=== PATIENT | male | born 1990 | race Caucasian/White ===

== ENCOUNTER 2021-05-21 16:16 | Emergency (ER) | payer OTHER ==
[~2021-05-21] VITALS: Ht 180.3 cm; Wt 86.2 kg
[~2021-05-21 16:16] MED LIST: ALBU90OI INH; AMOX250; Amoxicillin500 MG PO; CONCERTA; CYCL10 PO; Cyclobenzaprine5 MG PO; DOXY100 PO; ESCI20 PO; GUAI120S1 PO; HYDACE10B PO; HYDACE5 PO; HYDRA50 PO; IBUP200 PO; IBUP600 PO; IBUP800 PO; LEVE500; METPHE5; NAPR220 PO; NAPR500 PO; Naprosyn500 MG PO; Norco 5-325 Ta1 EACH PO; OMEP20ER PO; OXCA150; OXCA300 PO; Omeprazole20 M1 PO; PANT20 PO; PERM5TC TOP; PROM25 PO; PSEU120ER PO; Prednisone20 MG PO; QUET300 PO; RXCYCL10 PO; RXHYDACE PO; SERT25 PO; Tamiflu75 MG PO; VALA500 PO; VENL37.5 PO; Valium5 MG PO; Veetids 500500 MG PO; Zofran Odt4 MG SL; Zofran Odt8 MG SL; [UNRECOGNIZED DRUG - REMARK]; [UNRECOGNIZED DRUG - REMARK]
== END 2021-05-21 17:55 | disposition home or self-care (01) ==
LOC: ER 16:16
DX: M54.12 Radiculopathy, cervical region (principal); Z79.899 Other long term (current) drug therapy
CPT/HCPCS: 36415; 71046; 93005; 93010; 99284-25

== ENCOUNTER 2022-09-10 20:31 | Emergency (ER) | payer OTHER ==
[~2022-09-10] VITALS: Ht 180.3 cm; Wt 90.7 kg
== END 2022-09-10 22:32 | disposition home or self-care (01) ==
LOC: ER 20:31
DX: M79.642 Pain in left hand (principal); R60.0 Localized edema; F17.210 Nicotine dependence, cigarettes, uncomplicated; Z79.899 Other long term (current) drug therapy
CPT/HCPCS: 73130; 99283-25

== ENCOUNTER 2023-07-08 20:33 | Emergency (ER) | payer OTHER ==
[~2023-07-08] VITALS: Ht 180.3 cm; Wt 88.5 kg
[2023-07-08 20:42] VITALS: BP 169/87
== END 2023-07-08 21:21 | disposition home or self-care (01) ==
LOC: ER 20:33
DX: F41.9 Anxiety disorder, unspecified (principal); F15.10 Other stimulant abuse, uncomplicated; F17.210 Nicotine dependence, cigarettes, uncomplicated; Z79.899 Other long term (current) drug therapy; Z79.2 Long term (current) use of antibiotics
CPT/HCPCS: 99283; A9270

== ENCOUNTER 2023-09-15 18:55 | Emergency (ER) | payer OTHER ==
[~2023-09-15] VITALS: Ht 180.3 cm; Wt 86.2 kg
[2023-09-15 19:41] LABS: BASOPHILS PERCENT AUTO 1 % (0-2); EOSINOPHILS ABSOLUTE AUTO 0.05 K/mm3 (0.00-0.68); EOSINOPHILS PERCENT AUTO 0 % (0-6); Hematocrit 45.1 % (37.0-53.0); Hemoglobin 16.3 g/dL (13.5-17.5); IMMATURE GRAN ABSOLUTE AUTO 0.04 K/mm3 (0.00-0.10); IMMATURE GRAN PERCENT AUTO 0 % (0-1); LYMPHOCYTES PERCENT AUTO 15 % (21-46); MONOCYTES ABSOLUTE AUTO 0.88 K/mm3 (0.16-1.47); MONOCYTES PERCENT AUTO 7 % (4-13); Mean Corpuscular HGB Conc 36.1 g/dL (31.5-36.5); Mean Corpuscular Volume 94 fL (80-100); Mean Platelet Volume 9.2 fL (9.1-12.4); NEUTROPHILS ABSOLUTE AUTO 10.43 K/mm3 (1.96-9.15); NEUTROPHILS PERCENT AUTO 77 % (41-73); Platelet Count 428 K/mm3 (150-400); RDW Coefficient Variation 12.1 % (11.7-14.2); RDW Standard Deviation 42.2 fL (35.1-46.3); Red Blood Cell Count 4.79 M/mm3 (4.30-5.90)
[2023-09-15 20:07] LABS: Alanine Aminotransfer (ALT/SGP 25 U/L (12-78); Albumin, Blood 4.4 g/dL (3.4-5.0); Albumin/Globulin Ratio 1.4 (0.8-1.8); Alk Phos 74 U/L (50-136); Anion Gap 6 mmol/L (6-16); Aspartate Aminotrans (AST/SGOT 28 U/L (12-37); Blood Urea Nitrogen 14 mg/dL (8-24); Bun/Creatinine Ratio 13.2 (12.0-20.0); CO2, Blood 22 mmol/L (21-32); Calcium, Blood 9.7 mg/dL (8.5-10.1); Chloride, Blood 109 mmol/L (98-108); Creatinine, Blood 1.06 mg/dL (0.60-1.20); Globulin, Blood 3.1 g/dL (2.2-4.0); Glomerular Filtration Rate 95 (60-); Glucose, Blood 127 mg/dL (70-99); Potassium, Blood 4.3 mmol/L (3.5-5.5); Sodium, Blood 137 mmol/L (136-145); Total Protein, Blood 7.5 g/dL (6.4-8.2)
[2023-09-15 21:32] LABS: Ethanol (Alcohol), Blood, Med <3 mg/dL
[2023-09-15 22:00] VITALS: BP 142/114
== END 2023-09-15 22:09 | disposition home or self-care (01) ==
LOC: ER 18:55
PROVIDERS: Physician Assistant
DX: R07.9 Chest pain, unspecified (principal); K21.9 Gastro-esophageal reflux disease without esophagitis; F17.200 Nicotine dependence, unspecified, uncomplicated
CPT/HCPCS: 71046; 80053; 84484; 85025; 93005; 93010; 99285-25; A9270

== ENCOUNTER 2025-03-16 22:52 | Emergency (ER) | payer OTHER ==
[~2025-03-16] VITALS: Ht 188 cm; Wt 90.7 kg
[2025-03-16 22:55] VITALS: BP 149/95
[2025-03-16] MEDS ORDERED: Cyclobenzaprine HCl 10 MG Tab PO ONE (23:05)
[2025-03-16] MEDS ORDERED: Ketorolac Tromethamine 30mg Vial IM ONE (23:05)
[2025-03-17] MEDS ORDERED: CYCL10 PO (00:15)
[2025-03-17] MEDS ORDERED: IBUP600 PO (00:15)
[2025-03-17] MEDS ORDERED: FAMO20 PO (00:15)
== END 2025-03-17 00:30 | disposition home or self-care (01) ==
LOC: ER 22:52
DX: S16.1XXA Strain of muscle, fascia and tendon at neck level, initial encounter (principal); F17.210 Nicotine dependence, cigarettes, uncomplicated; X50.3XXA Overexertion from repetitive movements, initial encounter
CPT/HCPCS: 96372; 99283-25; A9270; J1885